=== PATIENT | female | born 1960 | race Caucasian/White ===

== ENCOUNTER 2018-02-04 00:23 | Emergency (ER) | payer OTHER ==
[~2018-02-04 00:23] MED LIST: BLOOD GLUCOSE T1 TES; GLIP10TA6 PO; LANCETS; LANCETS1 MI1; LATA.005%O EACH EYE; LEVO75TA3 PO; LISI10TA3 PO; METF1000 PO; PARO20TA2 PO; SIMV20TA PO
[2018-02-04 00:31] VITALS: BP 184/98; PULSE 90; RESP 18; TEMP 97.5; O2SAT 97
--- NOTE | 2018-02-04 00:50 | PD ---
HPI Chief Complaint: Abdominal Pain Time Seen by Provider: 00:46 Travel History International Travel<30 days: No Contact w/Intl Traveler<30days: No History of Present Illness HPI The patient is a 57 year old female who presents to the [facility] emergency department with a history of feeling shaky, lightheaded, and nauseated that began suddenly at 10 PM. The patient reports feeling sweaty with this. She denies having any chest pain or chest pressure. She checked her blood sugar and it was lower than usual at 70. She was not sure what to do , therefore she reports that she called her mother. Her mother recommended that she drink orange juice. She reports that this happened on one other occasion. She denies any changes in her diabetic medication regimen. The patient is reportedly on glipizide and metformin. The patient is followed for her primary care by the family practice residency program under the care of Dr. Washington. The patient reports that the symptoms began to improve after drinking orange juice. Otherwise on review of systems, the patient denies having any known recent fevers, cough or congestion, neck pain, abdominal pain, vomiting, diarrhea, urinary symptoms, or other neurologic symptoms. [facility] Past Medical History Narrative Medical The patient's past medical history is significant for Type 2 Diabetes, COPD, hypertension, arthritis, hypothyroid disorder, hyperlipidemia. Arthritis: Yes (knees and feet) Blood Disorders: No Cancer: No Cardiovascular Problems: Yes High Cholesterol: Yes COPD: Yes Diabetes: Yes Endocrine: Yes Glaucoma: Yes Genitourinary: No Hypertension: Yes Immune Disorder: No Musculoskeletal: No Neurologic: No Psychiatric: No Reproductive: No Respiratory: No Thyroid Disease: Yes Past Surgical History Narrative Surgical The patient's past surgical history is unremarkable. Social History Alcohol Use: No Tobacco Use: No Substance Use: No Allergies-Medications (Allergen,Severity, Reaction): Coded Allergies: No Known Allergies (Verified Adverse Reaction, Unknown, 09/17/17) Reported Meds & Prescriptions Reported Meds & Active Scripts Active Glucose (Dextrose) 4 Gm Chew 4 Gm CHEW ONCE PRN Macrobid (Nitrofurantoin Monoh/Nitrofur Macro) 100 Mg Cap 100 Mg PO BID 7 Days Glipizide 10 Mg Tab 10 Mg PO BIDAC Take 30 minutes before a meal Lisinopril 10 Mg Tab 10 Mg PO DAILY Levothyroxine (Levothyroxine Sodium) 75 Mcg Tab 75 Mcg PO DAILY Metformin (Metformin HCl) 1,000 Mg Tab 1,000 Mg PO BIDPC With meals Blood Glucose Test Strips 1 Lianet Lianet 1 Strips .ROUTE DIRECTED Please check blood glucose two times per day Simvastatin 20 Mg Tab 20 Mg PO HS Lancets 28G (Lancets) 1 Mis Mis 1 Strip .ROUTE DIRECTED check blood sugar twice per day Paroxetine (Paroxetine HCl) 20 Mg Tab 20 Mg PO DAILY Reported Xalatan Opth Drops (Latanoprost) 0.005% Drops 1 Drop EACH EYE HS Lancets 1 Mis Mis 1 Ea .ROUTE DIRECTED Review of Systems Except as stated in HPI: all other systems reviewed are Neg General / Constitutional: No: Fever Eyes: No: Visual changes HENT: No: Headaches Cardiovascular: Positive: Diaphoresis, No: Chest Pain or Discomfort Respiratory: Positive: Shortness of Breath Gastrointestinal: Positive: Nausea, No: Vomiting, Diarrhea, Abdominal Pain Genitourinary: No: Dysuria Musculoskeletal: No: Pain Skin: No Rash Neurologic: Positive: Tremor, No: Weakness, Focal Abnormalities, Change in Mentation, Slurred Speech, Sensory Disturbance Psychiatric: Positive: Anxiety, No: Depression Endocrine: No: Polydipsia Hematologic/Lymphatic: No: Easy Bruising Physical Exam Narrative General: The patient is a well-developed well-nourished female in no acute distress, she reports that the symptoms have resolved prior to arrival. Head and Neck exam: Head is normocephalic atraumatic. Eyes: EOMI, pupils are equal round and reactive to light. Nose: Midline septum with pink mucous membranes Mouth: Dentition unremarkable. Moist mucus membranes. Posterior oropharynx is not erythematous. No tonsillar hypertrophy. Uvula midline. Airway patent. Neck: No palpable lymphadenopathy. No nuchal rigidity. No thyromegaly. Cardiovascular: Regular rate and rhythm without murmurs, gallops, or rubs. Lungs: Clear to auscultation bilaterally. No wheezes, rhonchi, or rales. Abdomen: Soft, without tenderness to palpation in all 4 quadrants of the abdomen. No guarding, rebound, or rigidity. Normal bowel sounds are audible. No tenderness on palpation of McBurney's point. Extremities: No clubbing, cyanosis, or edema. 2+ pulses in all 4 extremities. No calf tenderness on palpation. Back: No spinous process tenderness to palpation. No costovertebral angle tenderness to palpation. Neurologic Exam: Grossly nonfocal. Skin Exam: No rash noted. Intact skin that is warm and dry. Data Data Last Documented VS Vital Signs Date Time Temp Pulse Resp B/P (MAP) Pulse Ox O2 Delivery O2 Flow Rate FiO2 02/04/18 03:21 02/04/18 01:26 16 99 Room Air 02/04/18 00:31 97.5 90 Orders Orders Complete Blood Count With Diff (02/04/18 01:21) Comprehensive Metabolic Panel (02/04/18 01:21) Creatine Kinase (Cpk) (02/04/18 01:21) Ckmb (Isoenzyme) Profile (02/04/18:21) Troponin I (02/04/1821) B-Type Natriuretic Peptide (02/04/18:21) Prothrombin Time / Inr (Pt) (02/04/18:21) Act Partial Throm Time (Ptt) (02/04/18:21) Urinalysis - C+S If Indicated (02/04/18:21) Magnesium (Mg) (02/04/18 01:21) Chest, Single Ap (02/04/18 01:21) Iv Access Insert/Monitor (02/04/18:21) Ecg Monitoring (02/04/18:21) Oximetry (02/04/18:21) Diet As Tolerated (02/04/18 01:21) Urine Culture (02/04/18 01:40) Nitrofurantoin Monohyd Macrocr (Macrobid (02/04/18 02:45) Blood Glucose (02/04/18 02:52) Ed Discharge Order (02/04/18 03:42) Labs Laboratory Tests Test 02/04/18 01:40 02/04/18 01:45 Urine Color LIGHT-YELLOW Urine Turbidity HAZY Urine pH 5.5 Urine Specific [place] 1.007 Urine Protein NEG mg/dL Urine Glucose (UA) NEG mg/dL Urine Ketones TRACE mg/dL Urine Occult Blood NEG Urine Nitrite NEG Urine Bilirubin NEG Urine Urobilinogen LESS THAN 2.0 MG/DL Urine Leukocyte Esterase TRACE Urine RBC 1 /hpf Urine WBC 4 /hpf Urine Squamous Epithelial Cells 10 /hpf Urine Transitional Epithelial Cells <1 /hpf Urine Amorphous Sediment RARE Urine Bacteria MANY /hpf Microscopic Urinalysis Comment CULTURE INDICATED White Blood Count 8.9 TH/MM3 Red Blood Count 4.86 MIL/MM3 Hemoglobin 14.7 GM/DL Hematocrit 43.6 % Mean Corpuscular Volume 89.7 FL Mean Corpuscular Hemoglobin 30.2 PG Mean Corpuscular Hemoglobin Concent 33.7 % Red Cell Distribution Width 14.0 % Platelet Count 210 TH/MM3 Mean Platelet Volume 10.7 FL Neutrophils (%) (Auto) 63.8 % Lymphocytes (%) (Auto) 25.0 % Monocytes (%) (Auto) 8.1 % Eosinophils (%) (Auto) 2.5 % Basophils (%) (Auto) 0.6 % Neutrophils # (Auto) 5.7 TH/MM3 Lymphocytes # (Auto) 2.2 TH/MM3 Monocytes # (Auto) 0.7 TH/MM3 Eosinophils # (Auto) 0.2 TH/MM3 Basophils # (Auto) 0.1 TH/MM3 CBC Comment DIFF FINAL Differential Comment Prothrombin Time 10.0 SEC Prothromb Time International Ratio 1.0 RATIO Activated Partial Thromboplast Time 28.9 SEC Blood Urea Nitrogen 15 MG/DL Creatinine 0.83 MG/DL Random Glucose 92 MG/DL Total Protein 7.8 GM/DL Albumin 3.6 GM/DL Calcium Level 8.6 MG/DL Magnesium Level 1.1 MG/DL Alkaline Phosphatase 73 U/L Aspartate Amino Transf (AST/SGOT) 19 U/L Alanine Aminotransferase (ALT/SGPT) 23 U/L Total Bilirubin 0.2 MG/DL Sodium Level 139 MEQ/L Potassium Level 4.0 MEQ/L Chloride Level 102 MEQ/L Carbon Dioxide Level 26.0 MEQ/L Anion Gap 11 MEQ/L Estimat Glomerular Filtration Rate 71 ML/MIN Total Creatine Kinase 39 U/L Troponin I LESS THAN 0.02 NG/ML B-Type Natriuretic Peptide 30 PG/ML MDM Medical Decision Making Medical Screen Exam Complete: Yes Emergency Medical Condition: Yes Medical Record Reviewed: Yes Differential Diagnosis Hypoglycemic event, versus anxiety attack, versus electrolyte derangements, versus dehydration, versus acute coronary syndrome Narrative Course During the course of the patient's emergency department visit, the patient's history, examination, and differential diagnosis were reviewed with the patient. The patient was placed on a director engineering with oximetry and frequent blood pressure monitoring. The patient had IV access obtained and blood work sent for analysis. The patient's initial blood sugar on arrival is 82. The patient's laboratory studies were reviewed and remarkable for: 02/04/18 01:45 Total Protein 7.8, Albumin 3.6, Calcium Level 8.6, Magnesium Level 1.1 L, Alkaline Phosphatase 73, Aspartate Amino Transf (AST/SGOT) 19, Alanine Aminotransferase (ALT/SGPT) 23, Total Bilirubin 0.2, cardiac enzymes within normal limits, BNP within normal limits ruling out congestive heart failure, PT PTT are within normal limits, urinalysis shows trace ketones trace leukocyte esterase many bacteria, culture indicated. The patient was given a dose of Macrobid p.o. Radiology studies were reviewed and remarkable for a chest x-ray that shows no evidence of acute cardiopulmonary disease. During the course of the patient's emergency department visit and evaluation the patient's blood sugar has remained stable. The patient's repeat blood sugar prior to discharge was 89. The patient was instructed on how to treat hypoglycemia. She was given glucose to use in case her blood sugar does drop again. She is instructed to follow-up with her primary care physician regarding this emergency department visit for recheck in the next 2-3 days. The patient is resting comfortably and feels better, is alert and in no distress. The patient's results and examination findings were discussed with the patient. The repeat examination is unremarkable and benign. The history, exam, diagnostic testing, and current condition do not suggest any significant pathology to warrant further testing, continued ED treatment, admission, or surgical evaluation at this point. The vital signs have been stable. The patient does not have uncontrollable pain, intractable vomiting, or other significant symptoms. The patient's condition is stable and appropriate for discharge. The patient will pursue further outpatient evaluation with a primary care physician or other designated or consulting physician as indicated in the discharge instructions. The patient expressed understanding and was agreeable with this plan. Diagnosis Primary Impression: Hypoglycemia Additional Impression: Urinary tract infection Qualified Codes: N30.00 - Acute cystitis without hematuria Referrals: Casandra Washington MD R3 2 days Patient Instructions: General Instructions, Hypoglycemia in a Person with Diabetes (ED) Med/Other Pt SpecificInfo: Prescription(s) given Scripts Dextrose (Glucose) 4 Gm Chew 4 GM CHEW ONCE Y for Per Hypoglycemic Protocol, #10 TAB 0 Refills Prov: Marilynn Kelsey MD 02/04/18 Nitrofurantoin Monohydrate Macrocrystals (Macrobid) 100 Mg Cap 100 MG PO BID for Infection for 7 Days, #14 CAP 0 Refills Prov: Marilynn Kelsey MD 02/04/18 Disposition: 01 DISCHARGE HOME Condition: Stable Marilynn Kelsey MD February 04, 2018 00:50
[2018-02-04 01:26] VITALS: RESP 16; O2SAT 99
[2018-02-04 01:55] LABS: AUTOMATED NEUTROPHIL # 5.7 TH/MM3 (1.8-7.7); BASOPHIL # 0.1 TH/MM3 (0-0.2); BASOPHIL % 0.6 % (0.0-2.0); EOSINOPHIL # 0.2 TH/MM3 (0-0.4); EOSINOPHIL % 2.5 % (0.0-4.0); HEMATOCRIT 43.6 % (35.0-46.0); HEMOGLOBIN 14.7 GM/DL (11.6-15.3); LYMPHOCYTE # 2.2 TH/MM3 (1.0-4.8); MEAN CELL VOLUME 89.7 FL (80.0-100.0); MEAN CORPUSCULAR HEMOGLOBIN 30.2 PG (27.0-34.0); MEAN CORPUSCULAR HGB CONC 33.7 % (32.0-36.0); MEAN PLATELET VOLUME 10.7 FL (7.0-11.0); MONO % 8.1 % (0.0-8.0); MONOCYTE # 0.7 TH/MM3 (0-0.9); NEUT % 63.8 % (16.0-70.0); PLATELET COUNT 210 TH/MM3 (150-450); RED BLOOD COUNT 4.86 MIL/MM3 (4.00-5.30); WHITE BLOOD COUNT 8.9 TH/MM3 (4.0-11.0)
[2018-02-04 01:59] LABS: AMORPHOUS SEDIMENT, URINE RARE; BACTERIA, URINE MANY /hpf; BILIRUBIN, URINE NEG (NEG); BLOOD, URINE NEG (NEG); GLUCOSE,URINE NEG (NEG); KETONE, URINE TRACE mg/dL (NEG); NITRITE,URINE NEG (NEG); PH, URINE 5.5 (5.0-8.5); SQUAMOUS EPITHELIAL CELL URINE 10 /hpf (0-5); TRANSITIONAL EPI CELLS, URINE <1 /hpf; URINE COLOR LIGHT-YELLOW (YELLW/STRAW); URINE LEUKOCYTE ESTERASE TRACE (NEG)
[2018-02-04 02:34] LABS: ALBUMIN 3.6 GM/DL (3.4-5.0); ALKALINE PHOSPHATASE 73 U/L (45-117); ALT (GPT) 23 U/L (10-53); AST (GOT) 19 U/L (15-37); BLOOD UREA NITROGEN 15 MG/DL (7-18); CALCIUM 8.6 MG/DL (8.5-10.1); CHLORIDE 102 MEQ/L (98-107); CREATININE 0.83 MG/DL (0.50-1.00); GLOMERULAR FILTRATION RATE 71 ML/MIN (>89); GLUCOSE,RANDOM 92 MG/DL (74-106); MAGNESIUM 1.1 MG/DL (1.5-2.5); SODIUM (NA) 139 MEQ/L (136-145); TOTAL BILIRUBIN ADULT 0.2 MG/DL (0.2-1.0); TOTAL PROTEIN 7.8 GM/DL (6.4-8.2); TROPONIN I LESS THAN 0.02 NG/ML (0.02-0.05)
[2018-02-04] MEDS ORDERED: NITROFURANTOIN MONOHYD MACROCR 100 MG CAP PO ONE (02:45)
[2018-02-04] MEDS ORDERED: MACR100C2 PO (02:59)
[2018-02-04] MEDS ORDERED: GLUC4CHW CHEW (02:59)
--- NOTE | 2018-02-04 03:13 | RADRPT ---
EXAM DATE/TIME: 02/04/2018 02:05 [place] COMPARISON: CHEST SINGLE AP, October 06, 2011, 17:11. INDICATIONS : Short of breath. MEDICAL HISTORY : None. SURGICAL HISTORY : None. ENCOUNTER: Initial ACUITY: 1 day PAIN SCORE: 0/10 LOCATION: Bilateral chest FINDINGS: A single view of the chest demonstrates the lungs to be symmetrically aerated without evidence of mas s, infiltrate or effusion. The cardiomediastinal contours are unremarkable. Osseous structures are intact. CONCLUSION: No acute cardiopulmonary process. Refugio Jensen MD on February 04, 2018 at 3:10 Board Certified Radiologist. This report was verified electronically.
== END 2018-02-04 04:01 | disposition home or self-care (01) ==
LOC: NEPE 00:23
DX: E11.649 Type 2 diabetes mellitus with hypoglycemia without coma (principal); N30.00 Acute cystitis without hematuria; E78.00 Pure hypercholesterolemia, unspecified; I10 Essential (primary) hypertension; E07.9 Disorder of thyroid, unspecified; J44.9 Chronic obstructive pulmonary disease, unspecified; R06.02 Shortness of breath; Z79.84 Long term (current) use of oral hypoglycemic drugs
CPT/HCPCS: 71045; 80053; 81001; 82550; 83735; 83880; 84484; 85025; 85610; 85730; 87086; 99284